=== PATIENT | female | born 1940 | race Caucasian/White ===

== ENCOUNTER 2017-07-13 07:11 | Inpatient (IN) ==
--- NOTE | 2017-07-12 21:03 | Discharge Summary ---
<Daly Sneed - Last Filed: 07/12/17 21:01> Date of Encounter: 07/12/17 - Discharge Diagnosis (1) Left rotator cuff tear arthropathy Priority: Primary Status: Acute (2) Thyroid disease Priority: Secondary Status: Acute - Discharge Medications Home Medications: OxyCODONE Immed Rel [Roxicodone 5 MG] 5 - 10 mg PO Q6HR PRN #40 tablet 07/12/17 [Rx] Alendronate Sodium [Fosamax] 70 mg PO SA 07/13/17 [History] Amitriptyline [Elavil] 10 mg PO DAILY 07/13/17 [History] Ascorbic Acid [Vitamin C with Maryuri Hips] 1,000 mg PO DAILY 07/13/17 [History] Aspirin 81 mg PO DAILY 07/13/17 [History] Biotin 1 mg PO DAILY 07/13/17 [History] Calcium Carbonate [Calcium] 500 mg PO DAILY 07/13/17 [History] Cod Liver Oil 1 tab PO DAILY 07/13/17 [History] Garlic [Odor Free Garlic] 100 mg PO DAILY 07/13/17 [History] Glucosamn/Condroitn/C/Mn/[place] [[facility] Glucosamine Chondroitin Tb] 1 tab PO DAILY 07/13/17 [History] Levothyroxine Sodium [Levoxyl] 75 mcg PO 0630 07/13/17 [History] Pravastatin Sodium [Pravachol] 40 mg PO DAILY 07/13/17 [History] Allergies/Adverse Reactions: 3 Allergy/AdvReac Type Severity Reaction Status Date / Time prednisone Allergy Rash Verified 07/08/17 14:41 Primary care physician: Denice Campos - Patient Status Disposition: Transfer Inpatient Rehab Fac Condition: Good - Discharge Instructions Follow Up With: Daly Fonseca DO [Primary Care Provider] - - Hospital Course Hospital course: Ms. Marti is a 76 year old female - Time Spent with Patient Total time spent providing and/or coordinating discharge services: <Joe Benoit - Last Filed: 07/15/17 06:42> Date of Encounter: 07/15/17 Time of Encounter: 06:41 - Discharge Diagnosis (1) Left rotator cuff tear arthropathy Priority: Primary Status: Acute (2) Thyroid disease Priority: Secondary Status: Chronic (3) Status post reverse total replacement of left shoulder Priority: Primary Status: Acute Primary care physician: Denice Campos - Patient Status Functional capacity at discharge: independent ambulation Overall status at discharge: patient is progressing back to baseline - Hospital Course Hospital course: Ms. Marti is a 76 year old female Status post left total shoulder replacement The patient had an uneventful postoperative course. They received antibiotics and physical therapy and were discharged in stable condition. There will follow -up in the office in 2 weeks. - Time Spent with Patient Total time spent providing and/or coordinating discharge services:
[2017-07-13] MEDS ORDERED: CeFAZolin Pre 2,000 MG/100 ML 2,000 MG/100 ML BAG IVPB ONE (07:35)
[2017-07-13] MEDS ORDERED: Plasma-Lyte A (PH 7.4) 1,000 ML IVC SCH (07:45)
--- NOTE | 2017-07-13 07:46 | History & Physical Report ---
Date of Encounter: 07/13/17 Time of Encounter: 07:46 24 Hour HP Update - Instructions Instructions: If the History and Physical is less than 30 days old and was completed prior to A.M. admission and or procedure and has NOT been updated on calendar day of procedure please complete this update prior to performing procedure. - Update Patient reports changes in Medical Condition: No Changes in examination, assessment, or condition: No Changes in Medication: No Surgery Remains Indicated: Yes Consent for Planned Operative Procedure(s) Verified: Yes - Pre-Operative Checklist Preoperative Checklist Indicated: No Prophylactic Antibiotic Ordered: Yes Is VTE Prophylaxis Indicated?: Yes
--- NOTE | 2017-07-13 07:57 | Anesthesia Evaluation PreOp ---
Date of Encounter: 07/13/17 Time of Encounter: 07:55 - Past History Planned Operation: l tsr Cardiac History: Hyperlipidemia Pulmonary History: Denies Any Significant HX FORM COVERER History: Denies Any Significant HX Other Medical History: Renal (stones), Thyroid Anesthesia History: No Prior Anesthetic Complications, Past Anesthesia (back, appy, hysterect, pt removal, part thyroid) Alcohol Use: none Drug use: none Medications and Allergies OxyCODONE Immed Rel [Roxicodone 5 MG] 5 - 10 mg PO Q6HR PRN #40 tablet 07/12/17 [Rx] Alendronate Sodium [Fosamax] 70 mg PO SA 07/13/17 [History] Amitriptyline [Elavil] 10 mg PO DAILY 07/13/17 [History] Ascorbic Acid [Vitamin C with Maryuri Hips] 1,000 mg PO DAILY 07/13/17 [History] Aspirin 81 mg PO DAILY 07/13/17 [History] Biotin 1 mg PO DAILY 07/13/17 [History] Calcium Carbonate [Calcium] 500 mg PO DAILY 07/13/17 [History] Cod Liver Oil 1 tab PO DAILY 07/13/17 [History] Garlic [Odor Free Garlic] 100 mg PO DAILY 07/13/17 [History] Glucosamn/Condroitn/C/Mn/[place] [[facility] Glucosamine Chondroitin Tb] 1 tab PO DAILY 07/13/17 [History] Levothyroxine Sodium [Levoxyl] 75 mcg PO 0630 07/13/17 [History] Pravastatin Sodium [Pravachol] 40 mg PO DAILY 07/13/17 [History] 3 Allergy/AdvReac Type Severity Reaction Status Date / Time prednisone Allergy Rash Verified 07/08/17 14:41 - Meds/Allergy Pre-op Review Medications Reviewed: Yes Allergies Reviewed: Yes Beta Blockers on Current Med List: No Anesthesia Results - Labs Laboratory Tests 07/08/17 07/08/17 07/08/17 14:51 14:51 14:51 Hgb 13.5 Hct 42.8 Plt Count 260 PT 10.8 INR 1.0 APTT 33.0 Sodium 141 Potassium 4.1 Creatinine 0.98 - Imaging EKG: report reviewed (sr) Anesthesia Exam O2 Sat Height 1.65 m Height 1.65 m Height 1.65 m Weight 67.132 kg Weight 67.132 kg Weight 67.132 kg O2 Sat by Pulse Oximetry 98 Vital Signs Temp Pulse Resp BP Pulse Ox 97.9 F 73 18 151/92 98 07/13/17 07:30 07/13/17 07:30 07/13/17 07:30 07/13/17 07:30 07/13/17 07:30 Height: 1.65 Weight: 67 NPO (# of Hours): >8 - HEENT Pupil (Motor): Pupils equal, EOMI Mallampati: II Teeth: Poor dentition Oral Opening: Greater than 3 - FORM COVERER LOC: Oriented FORM COVERER Motor: Normal RUE, Normal LUE, Normal RLE, Normal LLE, Normal Face FORM COVERER Sensory: Normal: RUE, LUE, RLE, LLE, Face - Cardiac Rhythm: Regular Murmur: None - Pulmonary Breath Sounds: bilateral Clear Respiratory Effort: Symmetrical Anesthesia Assess/Plan ASA Score: 3 Modified [place] Scale for Level of Consciousness: Cooperative, oriented, and tranquil Anesthetic Plan: General, Regional Monitoring Plan: Standard Monitors Recovery Plan: PACU
[2017-07-13] MEDS ORDERED: ROPIVACAINE HCL/PF 0.5% 30 ML VIAL ONE (09:22)
[2017-07-13] MEDS ORDERED: Bupivacaine/Clonidine Syringe 1 EACH SYRINGE ONE (09:23)
--- NOTE | 2017-07-13 09:57 | Anesthesia Procedures ---
Date of Encounter: 07/13/17 Time of Encounter: 09:55 Procedures: Anesthesia - Nerve Block Procedure Date: 07/13/17 Time: 09:55 Allergies/Adv Reactions: prednisone Pre-op Diagnosis: L shoulder RTC arthropathy Surgical Procedure: L TSR, Reverse Checklist: Correct Patient Identifier, Correct procedure, History checked Correct side: Left Blood Thinner: No Monitor Applied: EKG, BP, Pulse Oximetry Supplemental Oxygen via Nasal Cannula (L/min): 3 Sedation: Versed (mg): 2 Indication: Post Op Analgesia (requested by Dr. Benoit) Pre-op Neuro Deficits: No Block Type: Supraclavicular, Other (SCP, ICB) Catheter placed: No Sterile Technique: Yes Ultrasound used: Yes Anatomy identified: Yes Visual spread of Local: Yes Neuro Stimulation: No Blood on Needle Aspiration: No Smooth Injection of Local: Yes Pain with Injection of Local: No Prep: Chlorhexadine Needle: 22 x 50 mm Stimuplex Local: 0.25% Bupivicaine w/Clonidine 20 mcg/cc (10mL injected for SCP, ICB), Ropivacaine (30mL 0.5% for supraclavicular) Number of Attempts: 1 Complications: None/effective block Vitals: plesase see Bridgett FLORES's documentation
[2017-07-13] MEDS ORDERED: *HR* HYDROmorphone (PF) 1 MG/ML SYRINGE IVP PRN (10:27)
[2017-07-13] MEDS ORDERED: Ondansetron 4 MG/2 ML VIAL IVP PRN ×2 (10:27→11:42)
[2017-07-13] MEDS ORDERED: *HR* Labetalol 20 MG/4 ML SYRINGE IVP PRN (10:27)
[2017-07-13] MEDS ORDERED: Lidocaine -MPF 2% 2 ML VIAL ONE (10:30)
[2017-07-13] MEDS ORDERED: *HR* Propofol 200 MG/20 ML VIAL IVP ONE (10:30)
[2017-07-13] MEDS ORDERED: *HR* Midazolam HCl 2 MG/2 ML VIAL ONE (10:30)
--- NOTE | 2017-07-13 10:31 | Physician Discharge Referral ---
Home Health/Hosp Referral Info Transfer to: Home Health Attending Provider: Provider in Charge Post Discharge: PCP - Diagnosis (1) Left rotator cuff tear arthropathy Priority: Primary Status: Chronic (2) Thyroid disease Priority: Secondary Status: Chronic (3) Status post reverse total replacement of left shoulder Priority: Primary Status: Acute - Respiratory Orders None Smoking Cessation: Smoking cessation has been advised. For more information, call the [place] Tobacco Quit Line at 1-993-XOQB-NOW. - Dressing/Wound Care Type of Dressing/Treatments w/Frequency: Left Shoulder: Opsite placed. Keep dressing intact until first follow up appointment. If > 50% saturated,notify offfice, remove dressing and place appropriate dressing back in place. Dressing is water resistant, not water-proof. OK to shower, but do not get dressing wet. - Diet/Nutrition Diet/Nutrition Orders: Regular - Activity Activity Orders: Ambulate - Services Needed Following services are medically necessary services: Nursing, Home Health Aide, Physical Therapy, Occupational Therapy Home Care Orders: PT/OT. NWB to affected upper extremity. Follow Shoulder Precautions x 6 weeks. Stay in brace during activity and at night. Remove brace during exercises. ICE and elevate extremity frequently throughout the day. - Transfer Medications Prescriptions: OxyCODONE Immed Rel [Roxicodone 5 MG] 5 - 10 mg PO Q6HR PRN #40 tablet PRN Reason: Pain Home Medications: OxyCODONE Immed Rel [Roxicodone 5 MG] 5 - 10 mg PO Q6HR PRN #40 tablet 07/12/17 [Rx] Alendronate Sodium [Fosamax] 70 mg PO SA 07/13/17 [History] Amitriptyline [Elavil] 10 mg PO DAILY 07/13/17 [History] Ascorbic Acid [Vitamin C with Maryuri Hips] 1,000 mg PO DAILY 07/13/17 [History] Aspirin 81 mg PO DAILY 07/13/17 [History] Biotin 1 mg PO DAILY 07/13/17 [History] Calcium Carbonate [Calcium] 500 mg PO DAILY 07/13/17 [History] Cod Liver Oil 1 tab PO DAILY 07/13/17 [History] Garlic [Odor Free Garlic] 100 mg PO DAILY 07/13/17 [History] Glucosamn/Condroitn/C/Mn/[place] [[facility] Glucosamine Chondroitin Tb] 1 tab PO DAILY 07/13/17 [History] Levothyroxine Sodium [Levoxyl] 75 mcg PO 0630 07/13/17 [History] Pravastatin Sodium [Pravachol] 40 mg PO DAILY 07/13/17 [History] Allergies/Adverse Reactions: 3 Allergy/AdvReac Type Severity Reaction Status Date / Time prednisone Allergy Rash Verified 07/08/17 14:41 Certification: Further, I certify that my clinical findings support that this patient is homebound (i.e. absences from home require considerable and taxing effort and are for medical reasons or pentecostalism services or infrequently or short duration when for other reasons) because: Homebound Reason: Post-surgery restriction and or conditions limit ability to leave home Attestation: My signature below is to certify that this patient is under my care and that I, or nurse practitioner, or a physician's sugar laboratory assistant working with me, has a face-to -face encounter with this patient.
--- NOTE | 2017-07-13 10:40 | Orthopedic Operative Note ---
Date of procedure: 07/13/17 Pre-op diagnosis: Left shoulder cuff tear arthropathy Post-op diagnosis: same Procedure: Procedure: Total Shoulder Replacment Reverse, left Estimated blood loss: 100 cc Hardware: Metal and polyethylene replacement: Arthrex medium glenoid baseplate , 2 4.5 screws. 1 6.5 screw, 36+4 glenosphere, 9 humeral stem, poly insert 3 Exam Under anesthesia: Full motion and no instability Procedural Notes: Irreparable tear supraspinatus tendon. Operative procedure: The patient was brought to the operating room and placed on the operating room table. After general anesthesia was administered the operative shoulder was examined. Findings were noted. The patient was placed in the modified beachchair position. All pressure points were padded appropriately. And the head was stabilized in the neutral position. The operative extremity was prepped and draped in the sterile surgical fashion. The patient received IV antibiotics prior to skin incision. A standard deltopectoral approach was made to the operative shoulder. Incision was made to the skin and subcutaneous tissue,hemo stasis was obtained with Bovie cautery. Using careful blunt dissection the cephalic vein was identified and mobilized medially. The deltopectoral interval was developed and the clavipectoral fascia was incised. The subscap was released off the lesser tuberosity and tagged with #2 FiberWire suture subscap was irreparable. The humerus was dislocated patient noted to have irreparable tear supraspinatus tendon, and the humeral cut was made along the anatomic neck. Anterior and posterior Bankart retractors were placed to expose the glenoid. The glenoid guide was seated and the centering hole was made. It was reamed with the appropriate reamer. The medium baseplate was seated and secured with (2) 4.5 screws and one 6.5 screw. The baseplate was irrigated and dried and the 36+4 Glenosphere was seated and secured with the Marcelo taper. The Marcelo taper was tested and found to be secure the humerus was redislocated and prepared with the diaphyseal reamers, followed by a broaching process up to the appropriate size 9 in the patient's anatomic version. The metaphyseal reamer was then utilized. Trial reduction found the shoulder to be relocatable. Trial components were removed and The appropriate 9 stem was impacted in place in the patient's anatomic version. Trial reduction found the shoulder to be relocatable and stable with the appropriate 3 Tasha Trial component was removed areal implant was seated and secured the shoulder was reduced. The shoulder had excellent motion and excellent stability and no evidence of dislocation. The deep tissue was irrigated with pulse irrigation. the PA closed the shoulder. the deltopectoral interval was closed with a running #1 PDS suture, subcutaneous tissue was irrigated and closed with 0 PDS suture, the skin was closed with Dermabond. The patient was placed in a sterile dressing, abduction brace and extubated. The patient was then transferred to the recovery room in stable condition. Anesthesia: ANTHONY Surgeon: Joe Benoit Freelance Designer: Zuleyka Gracia Condition: stable Disposition: PACU
[2017-07-13 11:28] LABS: Hematocrit 38.4 % (35.3-44.9); Hemoglobin 12.5 g/dL (11.5-15.4)
--- NOTE | 2017-07-13 11:35 | Anesthesia Evaluation Post Op ---
Date of Encounter: 07/13/17 Time of Encounter: 11:34 - Vital Signs Vital Signs: Vital Signs/O2 Sat/Glucose, Most Current Temp Pulse Resp BP Pulse Ox 07/13/17 11:18 60 16 146/87 94 07/13/17 11:08 61 16 131/93 96 07/13/17 10:58 97.0 F L 71 16 146/93 100 07/13/17 09:47 66 16 163/92 96 07/13/17 09:40 70 16 182/106 96 - Lungs Lungs: Clear Ascult./Percussion - Airway Airway: Non-obstructed - Cardiovascular Regular Rate - Mental Status Mental Status: Alert & Oriented, Answers Appropriately - Pain Pain Scale: 0 - Nausea Vomiting Nausea Vomiting: Not Present - Hydration Hydration: Ice chips - Discharge PostOp Status: Transfer Patient to floor
[2017-07-13] MEDS ORDERED: MOM Conc 10 ML UD.LIQ PO PRN (11:42)
[2017-07-13] MEDS ORDERED: Naloxone 0.4 MG/ML INJ IVP PRN (11:42)
[2017-07-13] MEDS ORDERED: Temazepam 15 MG CAPSULE PO PRN (11:42)
[2017-07-13] MEDS ORDERED: Sennosides 8.6 MG TABLET PO PRN (11:42)
[2017-07-13] MEDS ORDERED: ceFAZolin 2,000 MG in D5% in Water 100 ML IVPB SCH (11:42)
[2017-07-13] MEDS ORDERED: *HR* OxyCODONE Immed Rel 5 MG TABLET PO PRN (11:42)
[2017-07-13] MEDS: [UNRECOGNIZED DRUG - REMARK] PO SCH (12:54)
[2017-07-13] MEDS: (Glucosamn/Condroitn/C/Mn/Boron [Cvs Glucosamine Chon PO SCH (12:54)
[2017-07-13] MEDS: (Biotin [Biotin] 1 MG) PO SCH (12:54)
[2017-07-13] MEDS: Aspirin 81 MG TAB.CHEW PO SCH (12:56)
[2017-07-13] MEDS: Ascorbic Acid 500 MG TABLET PO SCH (13:00)
[2017-07-13] MEDS: Ringers Solution, Lactated 1,000 ML IVC SCH (13:01)
[2017-07-13] MEDS: *HR* Enoxaparin 30 MG/0.3 ML SYRINGE SQ SCH (16:46)
[2017-07-13] MEDS: ceFAZolin 2,000 MG in D5% in Water 100 ML IVPB SCH (16:46)
[2017-07-13] MEDS: *HR* OxyCODONE Immed Rel 5 MG TABLET PO PRN ×2 (16:52→21:00)
[2017-07-13] MEDS ORDERED: *HR* Enoxaparin 30 MG/0.3 ML SYRINGE SQ SCH (18:00)
--- NOTE | 2017-07-13 18:20 | Electrocardiograph Report ---
[place] [id number] Test Date: 2017-07-13 Pat Name: Kim Marti Department: 106 Room: [facility] Gender: F Stonemason Helper: RICCI : 1940 Requested By: Colby Kaufman Order Number: [id number] Reading MD: Ranjeet Pike MD Measurements Intervals [place] Rate: 63 P: 50 DE: 202 QRS: -25 QRSD: 85 T: 27 QT: 413 QTc: 421 Interpretive Statements SINUS RHYTHM BORDERLINE LEFT AXIS DEVIATION Poor R wave progression Electronically Signed On 07-13-2017 18:18:19 EDT by Ranjeet Pike MD
[2017-07-14] MEDS: ceFAZolin 2,000 MG in D5% in Water 100 ML IVPB SCH (01:42)
[2017-07-14] MEDS: *HR* HYDROmorphone (PF) 1 MG/ML SYRINGE IVP PRN ×2 (01:46→10:02)
[2017-07-14] MEDS: *HR* Enoxaparin 30 MG/0.3 ML SYRINGE SQ SCH ×2 (05:37→18:05)
[2017-07-14] MEDS: *HR* OxyCODONE Immed Rel 5 MG TABLET PO PRN ×2 (05:54→21:11)
--- NOTE | 2017-07-14 06:50 | Orthopedics Progress Note ---
Date of Encounter: 07/14/17 Time of Encounter: 06:50 - Assessment and Plan (1) Left rotator cuff tear arthropathy Current Visit: Yes Status: Chronic (2) Thyroid disease Current Visit: Yes Status: Chronic (3) Status post reverse total replacement of left shoulder Current Visit: Yes Status: Acute Subjective Interval history: Patient was seen this morning doing well without complaints. Afebrile vital signs stable. Operative extremity: Neurovascularly intact Dressing clean dry and intact Calves nontender Assessment and plan: Continue with postoperative care hct 38 Objective Vital signs: Vital Signs Temp Pulse Resp BP Pulse Ox 07/14/17 04:50 98.7 F 86 17 105/60 91 07/13/17 23:45 99 F 95 17 113/74 91 07/13/17 23:44 91 07/13/17 18:49 98.8 F 105 18 149/82 95 07/13/17 15:33 98.0 F 66 14 134/75 95 07/13/17 14:51 97.7 F 66 16 120/72 96 07/13/17 14:03 97.4 F L 65 16 126/79 96 07/13/17 12:51 97.4 F L 61 16 129/79 98 07/13/17 12:18 97.5 F L 57 16 121/82 07/13/17 11:44 55 16 133/77 95 07/13/17 11:28 97.2 F L 60 16 144/87 95 07/13/17 11:18 60 16 146/87 94 07/13/17 11:08 61 16 131/93 96 07/13/17 10:58 97.0 F L 71 16 146/93 100 07/13/17 09:47 66 16 163/92 96 07/13/17 09:40 70 16 182/106 96 07/13/17 07:30 97.9 F 73 18 151/92 98 Intake and Output 07/13/17 07/13/17 07/14/17 15:59 23:59 07:59 Intake Total 100 / 100 300 / 300 1000 / 1000 Output Total 100 / 100 Balance 0 / 0 300 / 300 1000 / 1000 Intake: IV Fluids 100 / 100 100 / 100 1000 / 1000 Lactated Ringers 1,000 ML 1000 / 1000 @ 75 mls/hr IVC .[id number] PATTY Rx#:[id number] Ancef Premix 2,000 MG/100 100 / 100 ML 2,000 mg In 100 ml @ 200 mls/hr IVPB PREOP ONE Rx#:[id number] Ancef 2,000 MG In 100 / 100 Dextrose 5% 100 ML @ 200 mls/hr IVPB Q8H PATTY Rx#: [id number] Oral 0 / 0 200 / 200 Output: Estimated Blood Loss 100 / 100 Other: Meal Dinner Percent of Meal Consumed 90% # Voids 1 1 - Labs CBC & BMP: 07/13/17 11:18 - VTE Documentation of Mechanical Device: Venous foot pump, device Consult Discharge Plan - Plan Referrals: Daly Fonseca, [Primary Care Provider] -
[2017-07-14 06:58] LABS: Hematocrit 32.3 % (35.3-44.9)
[2017-07-14 07:01] LABS: Hemoglobin 10.8 g/dL (11.5-15.4)
[2017-07-14] MEDS: Aspirin 81 MG TAB.CHEW PO SCH (08:38)
[2017-07-14] MEDS: Ascorbic Acid 500 MG TABLET PO SCH (08:38)
[2017-07-14] MEDS: (Glucosamn/Condroitn/C/Mn/Boron [Cvs Glucosamine Chon PO SCH (09:04)
[2017-07-14] MEDS: [UNRECOGNIZED DRUG - REMARK] PO SCH (09:04)
[2017-07-14] MEDS: (Biotin [Biotin] 1 MG) PO SCH (09:04)
--- NOTE | 2017-07-14 12:24 | Event Note ---
Date of Encounter: 07/14/17 Time of Encounter: 12:23 PCR - Left TSR -r POD#.1 Patient seen at bedside. N/V - starting on Phen - D/C'ed Dilaudid due to N/V - will monitor on Oxycodone, may change to [place] if N/V persists. Educated on eating with pain medication as well. Pain control: adequate Participating in PT. All questions and concerns addressed. Educated on use of incentive spirometer, ambulation, and hydration. Patient educated on post-operative restrictions and care. Addressed: Above D/C plan:. ECF* Awaiting Auth.
[2017-07-14] MEDS ORDERED: Acetaminophen IV 500 MG/50 ML INFUS..BTL IVPB ONE (13:00)
--- NOTE | 2017-07-14 16:42 | Physician Discharge Referral ---
ExtendedCare Referral Info Transfer To: F Provider in Charge after Transfer: PCP Institutional Level of Care: Skilled - Diagnosis (1) Left rotator cuff tear arthropathy Priority: Primary Status: Acute (2) Status post reverse total replacement of left shoulder Priority: Primary Status: Acute (3) Thyroid disease Priority: Secondary Status: Chronic Expected Duration of Placement: < 30 days Prognosis: Good Aware of Diagnosis: Patient Aware of Prognosis: Patient - Transfer Medications Home Medications: OxyCODONE Immed Rel [Roxicodone 5 MG] 5 - 10 mg PO Q6HR PRN #40 tablet 07/12/17 [Rx] Alendronate Sodium [Fosamax] 70 mg PO SA 07/13/17 [History] Amitriptyline [Elavil] 10 mg PO DAILY 07/13/17 [History] Ascorbic Acid [Vitamin C with Maryuri Hips] 1,000 mg PO DAILY 07/13/17 [History] Aspirin 81 mg PO DAILY 07/13/17 [History] Biotin 1 mg PO DAILY 07/13/17 [History] Calcium Carbonate [Calcium] 500 mg PO DAILY 07/13/17 [History] Cod Liver Oil 1 tab PO DAILY 07/13/17 [History] Garlic [Odor Free Garlic] 100 mg PO DAILY 07/13/17 [History] Glucosamn/Condroitn/C/Mn/[place] [[facility] Glucosamine Chondroitin Tb] 1 tab PO DAILY 07/13/17 [History] Levothyroxine Sodium [Levoxyl] 75 mcg PO 0630 07/13/17 [History] Pravastatin Sodium [Pravachol] 40 mg PO DAILY 07/13/17 [History] Allergies/Adverse Reactions: 3 Allergy/AdvReac Type Severity Reaction Status Date / Time prednisone Allergy Rash Verified 07/08/17 14:41 - Respiratory Orders None Smoking Cessation: Smoking cessation has been advised. For more information, call the [place] Tobacco Quit Line at 1-406-UUFC-NOW. - Ancillary Orders May use pressure relief devices daily prn, May go on [place] w/family/respon democrat w /meds at nurse discretion PRN, May consult with Dentist, Arborist, Baseball Inspector PRN - Mobility Orders Chair, Ambulate - Rehabiliation Orders Rehab Potential: Good Rehab Orders: ROM Exercises, Evaluation for Physical Therapy, Evaluation for Occupational Therapy Other: Shoulder Precautions x 6 weeks. Apply cold therapy wrap 3-6x/day for 20 minutes at a time. Encourage ambulation throughout the day. Use Incentive spirometer 10x/hour. Elevate affected extremity above heart as tolerated. NWB to affected upper extremity x 6 weeks. Will remove brace at first post-operative appointment. OK to remove during PT/ OT and Home exercises. - Treatments Skin tear care topically daily PRN per policy List/Other: Opsite dressing, leave intact until first post-operative visit. If dressing becomes >50% saturated, contact office, remove dressing and place appropriate dressing in its place. Do not allow for dressing to get wet. - Diet Orders Regular CERTIFICATION: I certify that the transfer of the above named patient to an Extended Care Facility is necessary for the continuing treatment of the diagnosis listed. The above information is true and accurate reflection of patient's current condition. Confidential - Redisclosure prohibited without a patient's written consent.
[2017-07-14] MEDS: Ringers Solution, Lactated 1,000 ML IVC SCH (21:32)
[2017-07-15] MEDS: *HR* Enoxaparin 30 MG/0.3 ML SYRINGE SQ SCH (05:53)
--- NOTE | 2017-07-15 06:42 | Orthopedics Progress Note ---
Date of Encounter: 07/15/17 Time of Encounter: 06:42 - Assessment and Plan (1) Left rotator cuff tear arthropathy Current Visit: Yes Status: Acute (2) Thyroid disease Current Visit: Yes Status: Chronic (3) Status post reverse total replacement of left shoulder Current Visit: Yes Status: Acute Subjective Interval history: Patient was seen this morning doing well without complaints. Afebrile vital signs stable. Operative extremity: Neurovascularly intact Dressing clean dry and intact Calves nontender Assessment and plan: Continue with postoperative care hct 34 discharged today Objective Vital signs: Vital Signs Temp Pulse Resp BP Pulse Ox 07/15/17 05:50 98.5 F 86 16 100/59 94 07/14/17 23:12 99.4 F 105 18 111/63 93 07/14/17 19:46 98.3 F 95 18 111/72 93 07/14/17 15:37 98.3 F 82 18 122/74 94 07/14/17 11:18 97.9 F 73 17 102/65 94 07/14/17 09:25 105/67 07/14/17 06:56 98.7 F 82 17 94/60 92 Intake and Output 07/14/17 07/14/17 07/15/17 15:59 23:59 07:59 Intake Total 290 / 290 520 / 520 Balance 290 / 290 520 / 520 Intake: IV Fluids 50 / 50 Ofirmev 1,000 mg/100 ml 50 / 50 500 mg In 50 ml @ 200 mls /hr IVPB ONCE ONE Rx#: [id number] Oral 240 / 240 520 / 520 Other: Meal Breakfast Dinner Percent of Meal Consumed 50% 90% # Voids 1 Weight 72.3 kg Patient Weight 07/15/17 23:59 Weight 72.3 kg - Labs CBC & BMP: 07/14/17 06:31 Labs: Abnormal lab results Hgb 10.8 g/dL (11.5-15.4) L D 07/14/17 06:31 Hct 32.3 % (35.3-44.9) L 07/14/17 06:31 - VTE Documentation of Mechanical Device: Venous foot pump, device Consult Discharge Plan - Plan Referrals: Daly Fonseca DO [Primary Care Provider] -
[2017-07-15 07:18] LABS: Hematocrit 32.8 % (35.3-44.9); Hemoglobin 10.9 g/dL (11.5-15.4)
[2017-07-15] MEDS: Ascorbic Acid 500 MG TABLET PO SCH (07:50)
[2017-07-15] MEDS: Aspirin 81 MG TAB.CHEW PO SCH (07:51)
[2017-07-15] MEDS: (Biotin [Biotin] 1 MG) PO SCH (07:52)
[2017-07-15] MEDS: (Glucosamn/Condroitn/C/Mn/Boron [Cvs Glucosamine Chon PO SCH (07:52)
[2017-07-15] MEDS: [UNRECOGNIZED DRUG - REMARK] PO SCH (07:52)
[2017-07-15] MEDS: *HR* OxyCODONE Immed Rel 5 MG TABLET PO PRN (07:53)
--- NOTE | 2017-07-15 11:00 | Event Note ---
Date of Encounter: 07/15/17 Time of Encounter: 11:50 PCR - Left TSR-Reverse POD#.2 Patient seen at bedside. N/V - starting on Phen - D/C'ed Dilaudid due to N/V - will monitor on Oxycodone, may change to [place] if N/V persists. patient doing well today with significantly reduced nausea. Educated on eating with pain medication as well. H/H 10.9/32.8 Pain control: adequate Participating in PT. All questions and concerns addressed. Educated on use of incentive spirometer, ambulation, and hydration. Patient educated on post-operative restrictions and care. Addressed: Above D/C plan:. ECF* Awaiting Auth.
[2017-07-15 11:10] VITALS: BP 108/66
[2017-07-18] MEDS ORDERED: NON-FORMULARY MEDICATION 1 EACH EACH (Alendronate Sodium [Fosamax] 70 MG) PO SCH (07:48)
== END 2017-07-15 13:28 | DRG 483 ==
LOC: SAMDAY 07:11 → 3NENU 11:40
PROVIDERS: ADMIT Orthopaedic Surgery; ATTEND Orthopaedic Surgery

== ENCOUNTER 2021-06-19 20:26 | Inpatient (IN) ==
[2021-06-19] MEDS ORDERED: *HR* FentaNYL (PF) 100 MCG/2 ML VIAL IVP ONE ×2 (21:17→22:19)
[2021-06-19] MEDS ORDERED: Ondansetron 4 MG/2 ML VIAL IVP ONE (21:17)
[2021-06-19] MEDS: 0.9 % Sodium Chloride 1,000 ML IVC SCH (21:55)
[2021-06-19 23:07] LABS: Basophils % 0.2 %; Eosinophils % 0.3 %; Hematocrit 37.5 % (35.3-44.9); Hemoglobin 12.2 g/dL (11.5-15.4); Immature Granulocytes % 0.4 % (0-4); Lymphocytes # 1.1 K/mcL (0.6-4.6); Lymphocytes % 7.9 %; Mean Corpuscular HGB Conc 32.5 g/dL (31.6-35.5); Mean Corpuscular Volume 92.1 fL (83.0-100.0); Mean Platelet Volume 10.5 fL (9.4-12.4); Monocytes # 0.7 K/mcL (0.0-1.3); Monocytes % 5.1 %; Neutrophils # 12.1 K/mcL (1.6-8.9); Platelet Count 245 K/mcL (140-400); Red Blood Count 4.07 M/mcL (3.82-4.97); Red Cell Distribution Width 13.3 % (11.5-14.5); Segmented Neutrophils % 86.1 %
[2021-06-19 23:25] LABS: BUN/Creatinine Ratio 23 (6-26); Blood Urea Nitrogen 20 mg/dL (8-23); Calcium 8.5 mg/dL (8.6-10.3); Carbon Dioxide 24 mEq/L (23-29); Chloride 105 mEq/L (98-107); Glucose 104 mg/dL (70-105); Osmolality,Calculated 287 (280-300); Potassium 3.8 mEq/L (3.5-5.1); Sodium 137 mEq/L (136-145); eGFR For African Americans > 60 (> 60); eGFR For Non-African Americans > 60 (> 60)
[2021-06-20] MEDS ORDERED: Perflutren Lipid Microsphere 1.3 ML in 0.9 % Sodium Chloride 8.7 ML IVP PRN ×2 (03:08→15:49)
[2021-06-20] MEDS ORDERED: Ondansetron 4 MG/2 ML VIAL IVP PRN ×2 (03:10→15:49)
[2021-06-20] MEDS ORDERED: *HR* OxyCODONE Immed Rel 5 MG TABLET PO PRN ×3 (03:10→15:49)
[2021-06-20] MEDS ORDERED: Naloxone 0.4 MG/ML INJ IVP PRN ×2 (03:10→15:49)
[2021-06-20] MEDS ORDERED: Acetaminophen 325 MG TABLET PO PRN ×2 (03:10→11:44)
[2021-06-20] MEDS ORDERED: Calcium Gluconate 1gm/50mL 1 GM/50 ML BAG IVPB ONE (04:07)
[2021-06-20 04:09] LABS: Hematocrit 37.8 % (35.3-44.9); Hemoglobin 12.3 g/dL (11.5-15.4); Mean Corpuscular HGB Conc 32.5 g/dL (31.6-35.5); Mean Corpuscular Hemoglobin 29.9 pg (28.0-33.3); Mean Platelet Volume 10.4 fL (9.4-12.4); Platelet Count 257 K/mcL (140-400); Red Blood Count 4.11 M/mcL (3.82-4.97); Red Cell Distribution Width 13.2 % (11.5-14.5); White Blood Count 14.4 K/mcL (4.3-11.1)
[2021-06-20 04:20] LABS: BUN/Creatinine Ratio 19 (6-26); Blood Urea Nitrogen 17 mg/dL (8-23); Calcium 8.5 mg/dL (8.6-10.3); Carbon Dioxide 25 mEq/L (23-29); Chloride 106 mEq/L (98-107); Chol/HDL Ratio 3.4 (0-4.9); Cholesterol 168 mg/dL (< 200); Glucose 114 mg/dL (70-105); HDL Cholesterol 49 mg/dL (40-59); LDL Cholesterol,Calculated 106 mg/dL (< 100); Magnesium 1.7 mg/dL (1.6-2.6); Osmolality,Calculated 290 (280-300); Potassium 4.2 mEq/L (3.5-5.1); Sodium 139 mEq/L (136-145); Triglycerides 67 mg/dL (< 150); eGFR For African Americans > 60 (> 60); eGFR For Non-African Americans > 60 (> 60)
[2021-06-20 04:22] LABS: Estimated Average Glucose 126 mg/dl
[2021-06-20 04:23] LABS: Troponin I < 0.03 ng/mL (< 0.04)
[2021-06-20 04:37] LABS: Thyroid Stimulating Hormone 0.709 mcIU/mL (0.340-5.600)
[2021-06-20] MEDS: 0.9 % Sodium Chloride 1,000 ML IVC SCH (05:51)
[2021-06-20 07:05] LABS: Bilirubin,Urine Negative (Negative); Blood,Urine Negative (Negative); Clarity,Urine Clear (Clear); Color,Urine Light-Yellow (Yellow); Glucose,Urine (UA) Normal (Normal); Ketones,Urine 100 mg/dL (Negative); Leukocyte Esterase,Urine Negative (Negative); Nitrite,Urine Negative (Negative); Protein,Urine Negative (Neg-Trace); Specific Gravity,Urine 1.015 (1.010-1.025); Urobilinogen,Urine Normal (Normal)
[2021-06-20] MEDS ORDERED: Aspirin Enteric Coated 81 MG Tablet PO SCH (09:00)
[2021-06-20] MEDS ORDERED: *HR* Labetalol 20 MG/4 ML SYRINGE IVP PRN ×2 (13:05→15:49)
[2021-06-20] MEDS ORDERED: *HR* HYDROmorphone 2 MG TABLET PO PRN ×2 (13:05→15:49)
[2021-06-20] MEDS ORDERED: Famotidine 20 MG/2 ML VIAL IVP ONE ×2 (13:05→15:49)
[2021-06-20] MEDS ORDERED: Acetaminophen IV 1,000 MG/100 ML BAG IVPB ONE ×2 (13:05→15:49)
[2021-06-20] MEDS ORDERED: *HR* Propofol 200 MG/20 ML VIAL IVP ONE (13:34)
[2021-06-20] MEDS ORDERED: Ondansetron 4 MG/2 ML VIAL ONE (13:34)
[2021-06-20] MEDS ORDERED: *HR* FentaNYL (PF) 100 MCG/2 ML VIAL ONE (13:34)
[2021-06-20] MEDS ORDERED: Lidocaine -MPF 2% 2 ML VIAL ONE (13:36)
[2021-06-20] MEDS ORDERED: EPHEDrine 50 MG/ML VIAL ONE (14:10)
[2021-06-20] MEDS ORDERED: *HR* Magnesium Sulfate 1 GM/2 ML VIAL ONE (14:13)
[2021-06-20] MEDS: *HR* HYDROmorphone (PF) 1 MG/ML SYRINGE IVP PRN ×2 (15:13→15:23)
[2021-06-20] MEDS ORDERED: Ringers Solution, Lactated 1,000 ML ONE (15:28)
[2021-06-20] MEDS ORDERED: *HR* HYDROmorphone (PF) 1 MG/ML SYRINGE IVP PRN (15:49)
[2021-06-20] MEDS: CeFAZolin 2 GM/120 ML BAG IVPB SCH ×2 (16:47→23:45)
[2021-06-20] MEDS: Triamcinolone Acet 0.1% CRM 15 GM TUBE TP SCH (20:02)
[2021-06-20] MEDS ORDERED: Triamcinolone Acet 0.1% CRM 15 GM TUBE TP SCH (21:00)
[2021-06-21 03:30] LABS: Hematocrit 30.4 % (35.3-44.9); Mean Corpuscular HGB Conc 32.2 g/dL (31.6-35.5); Mean Corpuscular Hemoglobin 29.9 pg (28.0-33.3); Mean Corpuscular Volume 92.7 fL (83.0-100.0); Mean Platelet Volume 10.7 fL (9.4-12.4); Platelet Count 237 K/mcL (140-400); Red Blood Count 3.28 M/mcL (3.82-4.97); Red Cell Distribution Width 13.4 % (11.5-14.5); White Blood Count 14.1 K/mcL (4.3-11.1)
[2021-06-21 03:31] LABS: Hemoglobin 9.8 g/dL (11.5-15.4)
[2021-06-21 03:44] LABS: BUN/Creatinine Ratio 27 (6-26); Blood Urea Nitrogen 23 mg/dL (8-23); Calcium 7.9 mg/dL (8.6-10.3); Carbon Dioxide 23 mEq/L (23-29); Chloride 107 mEq/L (98-107); Glucose 220 mg/dL (70-105); Osmolality,Calculated 292 (280-300); Potassium 4.1 mEq/L (3.5-5.1); Sodium 136 mEq/L (136-145); eGFR For African Americans > 60 (> 60); eGFR For Non-African Americans > 60 (> 60)
[2021-06-21] MEDS: amLODIPine 5 MG TABLET PO SCH (07:52)
[2021-06-21] MEDS: Cholecalciferol (D-3) 1,000 UNIT (25MCG) TABLET PO SCH (07:53)
[2021-06-21] MEDS: Aspirin Enteric Coated 325 MG Tablet PO SCH (07:53)
[2021-06-21] MEDS: Triamcinolone Acet 0.1% CRM 15 GM TUBE TP SCH ×2 (07:56→21:06)
[2021-06-21] MEDS ORDERED: Cholecalciferol (D-3) 1,000 UNIT (25MCG) TABLET PO SCH (09:00)
[2021-06-21] MEDS ORDERED: amLODIPine 5 MG TABLET PO SCH (09:00)
[2021-06-21] MEDS: Sennosides/Docusate Sodium TABLET PO SCH ×2 (11:22→21:06)
[2021-06-22] MEDS: Aspirin Enteric Coated 325 MG Tablet PO SCH (09:08)
[2021-06-22] MEDS: amLODIPine 5 MG TABLET PO SCH (09:08)
[2021-06-22] MEDS: Sennosides/Docusate Sodium TABLET PO SCH ×2 (09:09→21:11)
[2021-06-22] MEDS: polyethylene glycoL 3350 17 GM POWD.PACK PO SCH (09:09)
[2021-06-22] MEDS: Cholecalciferol (D-3) 1,000 UNIT (25MCG) TABLET PO SCH (09:09)
[2021-06-22 10:18] LABS: Basophils # 0.1 K/mcL (0.0-0.2); Basophils % 0.3 %; Eosinophils # 0.1 K/mcL (0.0-0.6); Eosinophils % 0.8 %; Hematocrit 31.2 % (35.3-44.9); Hemoglobin 10.5 g/dL (11.5-15.4); Immature Granulocytes % 1.2 % (0-4); Lymphocytes # 1.5 K/mcL (0.6-4.6); Lymphocytes % 8.3 %; Mean Corpuscular HGB Conc 33.7 g/dL (31.6-35.5); Mean Corpuscular Hemoglobin 30.9 pg (28.0-33.3); Mean Corpuscular Volume 91.8 fL (83.0-100.0); Mean Platelet Volume 10.9 fL (9.4-12.4); Monocytes # 1.2 K/mcL (0.0-1.3); Monocytes % 6.6 %; Platelet Count 293 K/mcL (140-400); Red Cell Distribution Width 13.7 % (11.5-14.5); Segmented Neutrophils % 82.8 %; White Blood Count 18.1 K/mcL (4.3-11.1)
[2021-06-22 10:39] LABS: BUN/Creatinine Ratio 28 (6-26); Blood Urea Nitrogen 29 mg/dL (8-23); Calcium 8.5 mg/dL (8.6-10.3); Carbon Dioxide 25 mEq/L (23-29); Chloride 106 mEq/L (98-107); Glucose 173 mg/dL (70-105); Osmolality,Calculated 300 (280-300); Potassium 4.1 mEq/L (3.5-5.1); Sodium 140 mEq/L (136-145); eGFR For African Americans > 60 (> 60); eGFR For Non-African Americans 52 (> 60)
[2021-06-22] MEDS: Triamcinolone Acet 0.1% CRM 15 GM TUBE TP SCH ×2 (15:40→21:12)
[2021-06-22] MEDS: Acetaminophen 325 MG TABLET PO PRN (21:11)
[2021-06-23 06:38] LABS: Basophils % 0.3 %; Eosinophils # 0.3 K/mcL (0.0-0.6); Eosinophils % 2.4 %; Hematocrit 26.6 % (35.3-44.9); Immature Granulocytes % 1.6 % (0-4); Lymphocytes # 2.4 K/mcL (0.6-4.6); Lymphocytes % 17.9 %; Mean Corpuscular HGB Conc 33.1 g/dL (31.6-35.5); Mean Corpuscular Hemoglobin 30.7 pg (28.0-33.3); Mean Corpuscular Volume 92.7 fL (83.0-100.0); Mean Platelet Volume 10.4 fL (9.4-12.4); Monocytes # 1.6 K/mcL (0.0-1.3); Monocytes % 11.5 %; Platelet Count 231 K/mcL (140-400); Red Blood Count 2.87 M/mcL (3.82-4.97); Red Cell Distribution Width 13.8 % (11.5-14.5); Segmented Neutrophils % 66.3 %; White Blood Count 13.5 K/mcL (4.3-11.1)
[2021-06-23 06:39] LABS: Hemoglobin 8.8 g/dL (11.5-15.4)
[2021-06-23 06:59] LABS: BUN/Creatinine Ratio 38 (6-26); Blood Urea Nitrogen 28 mg/dL (8-23); Carbon Dioxide 27 mEq/L (23-29); Chloride 110 mEq/L (98-107); Glucose 102 mg/dL (70-105); Magnesium 1.9 mg/dL (1.6-2.6); Osmolality,Calculated 298 (280-300); Potassium 4.2 mEq/L (3.5-5.1); Sodium 141 mEq/L (136-145); eGFR For African Americans > 60 (> 60); eGFR For Non-African Americans > 60 (> 60)
[2021-06-23] MEDS: polyethylene glycoL 3350 17 GM POWD.PACK PO SCH (08:09)
[2021-06-23] MEDS: Cholecalciferol (D-3) 1,000 UNIT (25MCG) TABLET PO SCH (08:09)
[2021-06-23] MEDS: Sennosides/Docusate Sodium TABLET PO SCH (08:09)
[2021-06-23] MEDS: Aspirin Enteric Coated 325 MG Tablet PO SCH (08:09)
[2021-06-23] MEDS: amLODIPine 5 MG TABLET PO SCH (08:10)
[2021-06-23] MEDS: Triamcinolone Acet 0.1% CRM 15 GM TUBE TP SCH ×2 (08:11→21:15)
[2021-06-23] MEDS ORDERED: NON-FORMULARY MEDICATION 1 EACH EACH (Alendronate Sodium [Fosamax] 70 MG Tablet) PO SCH (11:32)
[2021-06-23] MEDS: Acetaminophen 325 MG TABLET PO PRN (19:25)
[2021-06-24 05:00] LABS: Basophils # 0.1 K/mcL (0.0-0.2); Basophils % 0.5 %; Eosinophils # 0.3 K/mcL (0.0-0.6); Eosinophils % 2.1 %; Hemoglobin 8.9 g/dL (11.5-15.4); Immature Granulocytes % 1.6 % (0-4); Lymphocytes # 1.9 K/mcL (0.6-4.6); Lymphocytes % 15.1 %; Mean Corpuscular Hemoglobin 30.4 pg (28.0-33.3); Mean Corpuscular Volume 92.2 fL (83.0-100.0); Mean Platelet Volume 10.3 fL (9.4-12.4); Monocytes # 1.4 K/mcL (0.0-1.3); Monocytes % 10.5 %; Platelet Count 276 K/mcL (140-400); Red Blood Count 2.93 M/mcL (3.82-4.97); Red Cell Distribution Width 13.7 % (11.5-14.5); Segmented Neutrophils % 70.2 %; White Blood Count 12.8 K/mcL (4.3-11.1)
[2021-06-24 05:22] LABS: % Iron Saturation 10 % (15-50); BUN/Creatinine Ratio 30 (6-26); Blood Urea Nitrogen 24 mg/dL (8-23); Calcium 7.9 mg/dL (8.6-10.3); Carbon Dioxide 27 mEq/L (23-29); Chloride 108 mEq/L (98-107); Glucose 110 mg/dL (70-105); Iron 25 mcg/dL (50-170); Osmolality,Calculated 295 (280-300); Potassium 3.8 mEq/L (3.5-5.1); Sodium 140 mEq/L (136-145); Transferrin 180 mg/dL (203-362); eGFR For African Americans > 60 (> 60); eGFR For Non-African Americans > 60 (> 60)
[2021-06-24 05:39] LABS: Ferritin 71 ng/mL (10-120)
[2021-06-24 05:45] LABS: Folate 16.4 ng/mL (3.0-16.0)
[2021-06-24] MEDS: Aspirin Enteric Coated 325 MG Tablet PO SCH (08:08)
[2021-06-24] MEDS: Cholecalciferol (D-3) 1,000 UNIT (25MCG) TABLET PO SCH (08:08)
[2021-06-24] MEDS: polyethylene glycoL 3350 17 GM POWD.PACK PO SCH (08:09)
[2021-06-24] MEDS: amLODIPine 5 MG TABLET PO SCH (08:12)
[2021-06-24] MEDS: Triamcinolone Acet 0.1% CRM 15 GM TUBE TP SCH ×2 (09:45→19:47)
[2021-06-24] MEDS ORDERED: Iron Sucrose Complex 200 MG in 0.9 % Sodium Chloride 100 ML IVPB ONE (10:00)
[2021-06-25 04:47] LABS: Basophils # 0.1 K/mcL (0.0-0.2); Basophils % 0.4 %; Eosinophils # 0.2 K/mcL (0.0-0.6); Eosinophils % 1.2 %; Hematocrit 26.2 % (35.3-44.9); Hemoglobin 8.7 g/dL (11.5-15.4); Immature Granulocytes % 1.9 % (0-4); Lymphocytes # 2.7 K/mcL (0.6-4.6); Lymphocytes % 19.1 %; Mean Corpuscular HGB Conc 33.2 g/dL (31.6-35.5); Mean Corpuscular Hemoglobin 30.2 pg (28.0-33.3); Mean Platelet Volume 10.2 fL (9.4-12.4); Monocytes # 1.5 K/mcL (0.0-1.3); Monocytes % 10.4 %; Neutrophils # 9.6 K/mcL (1.6-8.9); Nucleated Red Blood Cells 0.2 /100 WBC (0); Platelet Count 336 K/mcL (140-400); Red Blood Count 2.88 M/mcL (3.82-4.97); Red Cell Distribution Width 13.5 % (11.5-14.5); White Blood Count 14.3 K/mcL (4.3-11.1)
[2021-06-25 05:05] LABS: BUN/Creatinine Ratio 36 (6-26); Blood Urea Nitrogen 28 mg/dL (8-23); Calcium 7.8 mg/dL (8.6-10.3); Carbon Dioxide 25 mEq/L (23-29); Chloride 108 mEq/L (98-107); Glucose 109 mg/dL (70-105); Osmolality,Calculated 296 (280-300); Potassium 4.2 mEq/L (3.5-5.1); Sodium 140 mEq/L (136-145); eGFR For African Americans > 60 (> 60); eGFR For Non-African Americans > 60 (> 60)
[2021-06-25] MEDS: polyethylene glycoL 3350 17 GM POWD.PACK PO SCH (07:20)
[2021-06-25] MEDS: amLODIPine 5 MG TABLET PO SCH (07:20)
[2021-06-25] MEDS: Cholecalciferol (D-3) 1,000 UNIT (25MCG) TABLET PO SCH (07:20)
[2021-06-25] MEDS: Aspirin Enteric Coated 325 MG Tablet PO SCH (07:20)
[2021-06-25] MEDS: Triamcinolone Acet 0.1% CRM 15 GM TUBE TP SCH ×2 (07:22→19:41)
[2021-06-25 16:25] LABS: Adenovirus Not Detected (Not Detect); Bordetella Pertussis Not Detected (Not Detect); Chlamydophila pneumoniae Not Detected (Not Detect); Coronavirus 229E Not Detected (Not Detect); Coronavirus HKU1 Not Detected (Not Detect); Coronavirus NL63 Not Detected (Not Detect); Coronavirus OC43 Not Detected (Not Detect); Human Metapneumovirus Not Detected (Not Detect); Human Rhinovirus/Enterovirus Not Detected (Not Detect); Influenza A Subtype 2009 H1 Not Detected (Not Detect); Influenza B Not Detected (Not Detect); Mycoplasma pneumoniae Not Detected (Not Detect); Parainfluenza Virus 1 Not Detected (Not Detect); Parainfluenza Virus 2 Not Detected (Not Detect); Parainfluenza Virus 3 Not Detected (Not Detect); Parainfluenza Virus 4 Not Detected (Not Detect); Respiratory Syncytial Virus Not Detected (Not Detect); SARS-CoV-2 Not Detected (Not Detect)
[2021-06-25 16:26] VITALS: BP 112/67; PULSE 77; TEMP 98.4; O2SAT 97
== END 2021-06-25 20:24 | DRG 481 ==
LOC: EMEROOARM 20:26 → 3NENU 20:26 → SUATTDRO 06-20 03:10
PROVIDERS: ADMIT Internal Medicine; ATTEND Pharmacist

== ENCOUNTER 2022-06-15 09:11 | Observation (INO) ==
[2022-06-15] MEDS ORDERED: Albuterol 2.5 MG/3 ML NEBULIZER IH ONE (09:50)
[2022-06-15 09:51] LABS: Basophils % 0.6 %; Eosinophils # 0.1 K/mcL (0.0-0.6); Eosinophils % 1.6 %; Hematocrit 43.5 % (35.3-44.9); Hemoglobin 14.5 g/dL (11.5-15.4); Immature Granulocytes % 0.2 % (0-4); Lymphocytes # 1.9 K/mcL (0.6-4.6); Mean Corpuscular HGB Conc 33.3 g/dL (31.6-35.5); Mean Corpuscular Hemoglobin 30.7 pg (28.0-33.3); Mean Platelet Volume 10.5 fL (9.4-12.4); Monocytes # 0.8 K/mcL (0.0-1.3); Monocytes % 12.5 %; Neutrophils # 3.6 K/mcL (1.6-8.9); Platelet Count 204 K/mcL (140-400); Red Blood Count 4.73 M/mcL (3.82-4.97); Red Cell Distribution Width 13.3 % (11.5-14.5); Segmented Neutrophils % 56.1 %; White Blood Count 6.4 K/mcL (4.3-11.1)
[2022-06-15] MEDS ORDERED: Iopamidol - 370 500 ML MLS IVP ONE (09:53)
[2022-06-15 10:04] LABS: BUN/Creatinine Ratio 18 (6-26); Blood Urea Nitrogen 18 mg/dL (8-23); Carbon Dioxide 25 mEq/L (23-29); Chloride 106 mEq/L (98-107); Glucose 117 mg/dL (70-105); Osmolality,Calculated 293 (280-300); Potassium 3.6 mEq/L (3.5-5.1); Sodium 140 mEq/L (136-145); Troponin I < 0.03 ng/mL (< 0.04); eGFR For African Americans > 60 (> 60); eGFR For Non-African Americans 53 (> 60)
[2022-06-15 10:17] LABS: Alanine Aminotransferase 17 Units/L (7-52); Albumin 4.4 g/dL (3.5-5.7); Albumin/Globulin Ratio 1.8 (1.1-2.2); Alkaline Phosphatase 68 Units/L (34-104); Aspartate Amino Transferase 25 Units/L (13-39); Bilirubin,Direct 0.1 mg/dL (0.0-0.2); Bilirubin,Indirect 0.5 mg/dL (0.0-1.0); Bilirubin,Total 0.6 mg/dL (0.3-1.0); Globulin 2.5 g/dL (2.4-3.5); Total Protein 6.9 g/dL (6.4-8.9)
[2022-06-15 10:18] LABS: Influenza A PCR Negative (Negative); Influenza B PCR Negative (Negative); Resp. Syncytial Virus PCR Negative (Negative)
[2022-06-15 10:25] LABS: ABG Base Excess -1 mEq/L (-2 to 3); ABG HCO3 22 mEq/L (21-27); ABG Oxygen Saturation 98 % (95-98); ABG PCO2 31 mmHg (35-45); ABG PH 7.45 pH Units (7.32-7.45); ABG PO2 101 mmHg (85-104); ABG TCO2 23 mEq/L (20-26); Blood Gas Modality NIV
[2022-06-15] MEDS ORDERED: Piperacillin/Tazobactam 3.375 GM in 0.9 % Sodium Chloride Mini Bag 100 ML IVPB ONE (10:45)
[2022-06-15 10:48] LABS: SARS-CoV-2 by PCR (In House) Negative (Negative)
[2022-06-15 11:19] LABS: Adenovirus Not Detected (Not Detect); Bordetella Pertussis Not Detected (Not Detect); Chlamydophila pneumoniae Not Detected (Not Detect); Coronavirus 229E Not Detected (Not Detect); Coronavirus HKU1 Not Detected (Not Detect); Coronavirus NL63 Not Detected (Not Detect); Coronavirus OC43 Not Detected (Not Detect); Human Metapneumovirus Not Detected (Not Detect); Human Rhinovirus/Enterovirus Not Detected (Not Detect); Influenza A Subtype 2009 H1 Not Detected (Not Detect); Influenza B Not Detected (Not Detect); Mycoplasma pneumoniae Not Detected (Not Detect); Parainfluenza Virus 1 Not Detected (Not Detect); Parainfluenza Virus 2 Not Detected (Not Detect); Parainfluenza Virus 3 Not Detected (Not Detect); Parainfluenza Virus 4 Not Detected (Not Detect); Respiratory Syncytial Virus Not Detected (Not Detect); SARS-CoV-2 Not Detected (Not Detect)
[2022-06-15] MEDS: cefTRIAXone 1,000 MG in 0.9 % Sodium Chloride 10 ML IVP SCH (12:25)
[2022-06-15] MEDS ORDERED: *HR* Enoxaparin 40 MG/0.4 ML SYRINGE SQ ONE (12:36)
[2022-06-15] MEDS ORDERED: Melatonin 3 MG TABLET PO PRN (12:37)
[2022-06-15] MEDS ORDERED: Acetaminophen 325 MG TABLET PO PRN (12:37)
[2022-06-15] MEDS ORDERED: Ondansetron 4 MG/2 ML VIAL IVP PRN (12:37)
[2022-06-15 19:32] VITALS: TEMP 97.7
[2022-06-16] MEDS ORDERED: *HR* Enoxaparin 40 MG/0.4 ML SYRINGE SQ SCH (06:00)
[2022-06-16 07:55] VITALS: BP 148/68; PULSE 77; O2SAT 95
[2022-06-16] MEDS: cefTRIAXone 1,000 MG in 0.9 % Sodium Chloride 10 ML IVP SCH (08:58)
[2022-06-16] MEDS ORDERED: Dexamethasone Sodium Phos/PF 10 MG/ML VIAL IVP SCH (09:00)
== END 2022-06-16 14:19 | disposition home or self-care (01) ==
LOC: 2NENU 09:11 → EMEROOARM 09:11 → SUATTDRO 12:05 → 2NENU 12:59
PROVIDERS: ADMIT Internal Medicine; ATTEND Internal Medicine